=== PATIENT | female | born 1995 | race Two or more races ===

== ENCOUNTER 2025-09-19 13:56 | Emergency (ER) | payer OTHER ==
[~2025-09-19] VITALS: Ht 177.8 cm; Wt 109.4 kg
--- NOTE | 2025-09-19 14:04 | ED.PDOC ---
HPI (NEURO) HPI Comments 29 year old female presents to the ED via EMS with a chief complaint of seizure onset today (09/19/25). Per EMS, patient experienced a tonic-clonic seizure, witnessed by family lasted approximately 2 minutes. Patient states she was on the couch watching tv, when she experienced seizure, she is on Keppra, did not take Keppra today, experienced seizure. Denies oral trauma, incontinence, dizziness, fever, chills, nausea, vomiting, diarrhea. No other symptoms or modifying factors present at this time. 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 Family History Family History: Reviewed,noncontributory to illness, No family hx of Cancer, No family hx of DM, No family hx of Heart maylin, No family hx of HTN, No family hx ofKidney maylin, No family hx of Liver maylin, No family hx of Lung maylin, No family hx of Stroke Social History Smoker: Non-Smoker Alcohol: Denies ETOH Use Drugs: Denies Drug Use Lives In: Home Constitutional: denies: chills, diaphoresis, fatigue, fever, malaise, sweats, weakness, others EENTM: denies: blurred vision, double vision, ear bleeding, ear discharge, ear drainage, ear pain, ear ringing, eye pain, eye redness, hearing loss, mouth pain, mouth swelling, nasal discharge, nose bleeding, nose congestion, nose pain, photophobia, tearing, throat pain, throat swelling, voice changes, others Respiratory: denies: cough, hemoptysis, orthopnea, SOB at rest, shortness of breath, SOB with excertion, stridor, wheezing, others Cardiovascular: denies: chest pain, dizzy spells, diaphoresis, Dyspnea on exertion, edema, irregular heart beat, left arm pain, lightheadedness, palpitati ons, PND, syncope, others Gastrointestinal: denies: abdomen distended, abdominal pain, blood streaked bowels, constipated, diarrhea, dysphagia, difficulty swallowing, hematemesis, melena, nausea, poor appetite, poor fluid intake, rectal bleeding, rectal pain, vomiting, others Genitourinary: denies: abnormal vagina bleeding, burning, dyspareunia, dysuria, flank pain, frequency, hematuria, incontinence, pain, , vagina discharge, urgency, others Neurological: reports: seizure; denies: dizziness, fainting, headache, left sided numbness, left sided weakness, numbness, paresthesia, pre-existing deficit, right sided numbness, right sided weakness, speech problems, tingling, tremors, weakness, others Musculoskeletal: denies: back pain, gout, joint pain, joint swelling, muscle pain, muscle stiffness, neck pain, others Integumetry: denies: bruises, change in color, change in hair/nails, dryness, laceration, lesions, lumps, rash, wounds, others Allergic/Immunocompromised: denies: Difficulty Healing, Frequent Infections, Hives, Itching, others Hematologic/Lymphatic: denies: anemia, blood clots, easy bleeding, easy bruising, swollen glands, others Endocrine: denies: excessive hunger, excessive sweating, excessive thirst, excessive urination, flushing, intolerance to cold, intolerance to heat, unexplained weight gain, unexplained weight loss, others Psychiatric: denies: anxiety, bipolar disorder, depression, hopeless, panic dis order, schizophrenia, sleepless, suicidal, others All Other Systems: Reviewed and Negative Physical Exam General Appearance: Normal HEENT: Normal ENT Inspection, Pharynx Normal, TMs Normal Neck: Full Range of Motion, Non-Tender, Normal, Normal Inspection Respiratory: Chest Non-Tender, Lungs Clear, No Accessory Muscle Use, No Respiratory Distress, Normal Breath Sounds Cardiovascular: No Edema, No JVD, No Murmur, No Gallop, Normal Peripheral Pulses, Regular Rate/Rhythm Breast Exam: Deferred Gastrointestinal: No Organomegaly, Non Tender, No Pulsatile Mass, Normal Bowel Sounds, Soft Genitalia: Deferred Pelvic: Deferred Rectal: Deferred Extremities: No calf tenderness, Normal capillary refill, Normal inspection, Normal range of motion, Non-tender, No pedal edema Musculoskeletal : Apperance: Normal Neurologic: Alert, digester cook II-XII nml as Tested, No Motor Deficits, Normal Affect, Normal Mood, No Sensory Deficits Cerebellar Function: Normal Reflexes: Normal Skin: Dry, Normal Color, Warm Lymphatic: No Adenopathy Was a procedure done? Was a procedure done?: No Differential Diagnosis (SZ) Seizure: Psychogenic Seizure, Epilepsy-Break Through, Epilepsy-Status CVA: Hypoglycemia General Weakness: Hypovolemia Headache: N/A X-Ray, Labs, Meds, VS Vital Signs Date Time Temp Pulse Resp B/P (MAP) Pulse Ox O2 Delivery O2 Flow Rate FiO2 09/19/25 14:15 98.3 94 17 150/93 (112) 98 98.3 09/19/25 14:15 94 17 98 Room Air* 0 21 09/19/25 13:56 98.3 112 20 133/84 100 98.3 Current Medications Medications (Trade) Dose Ordered Sig/Janeth Route Start Time Stop Time Status Last Admin Levetiracetam 100 ml @ 400 mls/hr ONCE ONCE IV 09/19/25 14:00 09/19/25 14:14 DC 09/19/25 14:17 Sodium Chloride 1,000 ml @ 1,000 mls/hr Q1H ONCE IV 09/19/25 14:00 09/19/25 15:06 DC 09/19/25 14:17 Time of 1ST Reevaluation: 14:30 Reevaluation 1ST: Unchanged Patient Education/Counseling: Diagnosis, Treatment, Prognosis Family Education/Counseling: No Family Present Departure 1 Departure Time of Disposition: 15:59 (Patient likely with a breakthrough seizure. In the setting of medication noncompliance. Patient is back to normal feeling well. We will discharge patient home) Impression: Primary Impression: Breakthrough seizure Disposition: 01 HOME / SELF CARE / HOMELESS Condition: Stable Additional Instructions: You had a breakthrough seizure today. It is important to take your seizure medication. You should stay well rested and well hydrated. You should follow up with your regular doctor within 1 week. If your symptoms worsen or you have any other concerns then please return to the emergency room. Discharged With: Self Critical Care Note Critical Care Time?: No Stability Stability form required: No Heart Score Heart Score: Heart Score Response (Comments) Value History N/A 0 EKG N/A 0 Age N/A 0 Risk Factors N/A 0 Troponin N/A 0 Total 0 I personally scribed for TERA SMITH MD ([email or web address]) on 09/19/25 at 14:04. Electronically submitted by Francine Brower ([email or web address]). I personally scribed for TERA SMITH MD ([email or web address]) on 09/19/25 at 14:21. Electronically submitted by Francine Brower ([email or web address]). TERA SMITH MD Sep 19, 2025 14:04
[2025-09-19 14:15] VITALS: PULSE 94; RESP 17; O2SAT 98
[2025-09-19] MEDS: levETIRAcetam 1000 mg/100ml 100 ML IV ONE (14:17)
[2025-09-19] MEDS: SODIUM CHLORIDE 0.9% 1,000 ML IV ONE (14:17)
[2025-09-19 16:17] VITALS: BP 121/75; PULSE 87; RESP 13; TEMP 98.4; O2SAT 97
== END 2025-09-19 16:20 | disposition home or self-care (01) ==
LOC: EDBD 13:56 → ER 14:02
DX: R56.9 Unspecified convulsions (principal); R51.9 Headache, unspecified; E86.0 Dehydration
CPT/HCPCS: 96361; 96365; 99284; J1953; J7030